=== PATIENT | female | born 1985 | race Caucasian/White ===

== ENCOUNTER 2019-06-30 14:30 | Outpatient (CLI) | payer MEDICAID | END 2019-06-30 15:09 | disposition home or self-care (01) | LOC: D.LDO 14:30 | PROVIDERS: ATTEND Student in an Organized Health Care Education/Training Program | DX: O36.5990 Maternal care for other known or suspected poor fetal growth, unspecified trimester, not applicable or unspecified (principal) ==

== ENCOUNTER → 2019-07-13 14:15 | Outpatient (CLI) | payer MEDICAID ==
[2019-07-13 15:40] LABS: BASOPHILS 0.2 % (0-2); EOSINOPHILS 1.5 % (0-7); HEMATOCRIT 23.6 % (36.0-48.0); IMMATURE GRANULOCYTES 0.6 % (0-5); LYMPHOCYTES 22.7 % (15-50); MCH 23.2 pg (26.0-34.0); MCHC 29.7 g/dL (31.0-37.0); MCV 78.1 fL (80.0-100.0); MEAN PLATELET VOLUME 8.8 fL (7.4-10.4); MONOCYTES 4.7 % (2-11); NEUTROPHILS 70.3 % (40-80); PLATELET COUNT 383 10x3/uL (130-400); RBC 3.02 10x6/uL (4.00-5.40); RDW 14.4 % (11.5-14.5); WBC 8.3 10x3/uL (4.8-10.8)
[2019-07-13 15:50] LABS: CALC OSMOLALITY 270 mosm/kg (275-300); CALCIUM 7.7 mg/dL (8.5-10.1); CARBON DIOXIDE 23.4 mmol/L (21.0-32.0); CHLORIDE - SERUM 105 mmol/L (98-107); CREATININE - SERUM 0.5 mg/dL (0.6-1.3); GLUCOSE 78 mg/dL (74-106); POTASSIUM - SERUM 3.5 mmol/L (3.5-5.1); SODIUM 137 mmol/L (136-145); UREA NITROGEN 7 mg/dL (7-18); eGFR NON AFRICAN AMERICAN > 90 mL/min (90-120)
[2019-07-13 15:56] LABS: ALBUMIN 1.8 g/dL (3.4-5.0); ALKALINE PHOSPHATASE 205 U/L (30-120); ALT (SGPT) 18 U/L (10-68); BILIRUBIN - INDIRECT 0.19 mg/dL (0.00-1.00); BILIRUBIN - TOTAL 0.29 mg/dL (0.2-1.3); PROTEIN - SERUM 5.9 g/dL (6.4-8.2); URIC ACID 5.1 mg/dL (2.6-7.2)
[2019-07-13 16:00] LABS: BILIRUBIN NEGATIVE (NEGATIVE); GLUCOSE NEGATIVE (NEGATIVE); KETONE NEGATIVE (NEGATIVE); NITRITE NEGATIVE (NEGATIVE); UROBILINOGEN NORMAL (NORMAL)
[2019-07-13 16:12] LABS: EPITHELIAL CELLS 0-5 /hpf (0-5); RED CELLS - URINE 0-5 /hpf (0-5); WHITE CELLS - URINE 25-50 /hpf (NEGATIVE)
[2019-07-13 16:13] LABS: BACTERIA MODERATE /hpf (NEGATIVE)
== END | disposition home or self-care (01) ==
LOC: D.LDO 14:15
PROVIDERS: ATTEND Student in an Organized Health Care Education/Training Program
DX: O16.9 Unspecified maternal hypertension, unspecified trimester (principal)

== ENCOUNTER → 2019-07-17 08:44 | Outpatient (CLI) | payer MEDICAID ==
[~2019-07-17 08:44] MED LIST: FERROUS SULFAT325 MG PO; PRENAVITE1 TAB PO
[2019-07-17 11:29] VITALS: BP 112/74
== END | disposition home or self-care (01) ==
LOC: D.LDO 08:44
PROVIDERS: ATTEND Student in an Organized Health Care Education/Training Program
DX: O26.899 Other specified pregnancy related conditions, unspecified trimester (principal)

== ENCOUNTER 2019-07-29 05:21 | Inpatient (IN) | payer MEDICAID ==
[~2019-07-29] VITALS: Ht 154.9 cm; Wt 66.7 kg
[2019-07-29] VITALS (9 sets, daily range): BP systolic 112–135; BP diastolic 58–95; Ht 154.9 cm; Wt 66.7 kg
--- NOTE | ~2019-07-29 | OP ---
PATIENT NAME: ELIZABETH SON MEDICAL RECORD: [id number] :85 LOCATION:[id number] ADMISSION DATE:07/29/19 SURGEON: AYE CABAN DO DATE OF OPERATION: 07/29/2019 PREOPERATIVE DIAGNOSES: Scheduled repeat , multiparity, desire for permanent sterilization. POSTOPERATIVE DIAGNOSES: Scheduled repeat , multiparity, desire for permanent sterilization. PRIMARY SURGEON: Aye Caban DO ANESTHESIA: Spinal. PROCEDURE: Repeat low transverse section via Pfannenstiel incision, bilateral tubal ligation. FINDINGS: Male , weight 6 pounds 5 ounces, delivered at 10:28 a.m., Apgars 9 and 9. Normal uterus, bilateral fallopian tubes, bilateral ovaries. SPECIMENS: Placenta and cord, portion of bilateral fallopian tubes. ESTIMATED BLOOD LOSS: 800 cc. IV FLUIDS: 2500 cc. URINE OUTPUT: 300 cc clear urine. COMPLICATIONS: None. CONDITION: Stable. PROCEDURE IN DETAIL: The risks, benefits, alternatives, and indications of the procedure were discussed with the patient. She voiced understanding of the procedure and signed the consent. She understood that bilateral tubal ligation is a permanent procedure and expressed desire for permanent sterility. She was given spinal anesthesia and she was placed in the dorsal supine position with a leftward tilt. She was prepped and draped in the normal sterile fashion. A Pfannenstiel skin incision was made with a scalpel and carried down to the underlying layer of the fascia with the Bovie. The fascia was incised in the midline and extended laterally. The inferior aspect of the fascial incision was grasped with Dinorah clamps and the rectus muscle was dissected off sharply. Attention was then turned to the superior aspect of the fascial incision and the rectus muscle was dissected off in a similar fashion. The rectus muscle was grasped with 2 Allises, down to the level of the peritoneum with the scalpel. The peritoneum was identified and noted to be free of adherent bowel and entered bluntly. The peritoneum was further with gentle traction. The bladder blade was inserted. There was a uterine window noted and the uterus was incised in a lower uterine segment in transverse fashion with a scalpel. The incision was extended with cephalad caudad traction. The 's head was brought to the incision. Nuchal cord times 1 was noted and was reduced over the head prior to delivery of the body. The infant delivered without difficulty. Mouth and nose were suctioned. Cord was clamped and cut and the infant was handed off to waiting pediatricians. The placenta was manually OPERATIVE REPORT [id number] ELIZABETH SON removed. The uterus was exteriorized and a moist lap was used to assure complete removal of placental membranes. The hysterotomy was closed with 0 Vicryl in a running locked fashion with good hemostasis noted. The uterus, tubes and ovaries were noted to be normal. The right fallopian tube was grasped with a Malvin and was ligated via modified Leaven[place] technique. The left tube was ligated in similar fashion and both portions of tube were sent to pathology. The posterior cul-de-sac was irrigated with warm sterile water and the uterus, tubes and ovaries were returned back to the abdominal cavity. A moist laparotomy sponge was used to assure complete removal of blood clots and fluid from the abdominal cavity. The hysterotomy was reinspected and noted to be hemostatic. Both tubal ligation sites were reinspected and also noted to be hemostatic. The rectus muscle was closed with 2-0 Monocryl in a running fashion with good hemostasis. The fascial incision was closed with 0 Vicryl in a running fashion with good hemostasis. The skin was closed in a subcuticular fashion with 3-0 Monocryl and Steri-Strips covering. All needle, lap, sponge, and instrument counts were correct times 2. The patient tolerated the procedure well and she was taken to recovery room in stable condition. TRANSINT:[id number] Voice Confirmation ID: [id number] DOCUMENT ID: [id number] AYE CABAN DO CC: [id number] DICTATION DATE: 07/29/191126 RESAW FEEDER: 07/29/19 1229 ADM IN [facility] [address] [place] [address]
[2019-07-29 06:09] LABS: HEMATOCRIT 32.8 % (36.0-48.0); MCHC 30.5 g/dL (31.0-37.0); MEAN PLATELET VOLUME 9.5 fL (7.4-10.4); RDW 19.3 % (11.5-14.5); WBC 9.9 10x3/uL (4.8-10.8)
[2019-07-29 06:22] LABS: UDS - AMPHET NEGATIVE QUAL (NEGATIVE); UDS - BARB NEGATIVE QUAL (NEGATIVE); UDS - BENZO NEGATIVE QUAL (NEGATIVE); UDS - COCAINE NEGATIVE QUAL (NEGATIVE); UDS - OPIATE NEGATIVE QUAL (NEGATIVE); UDS - PCP NEGATIVE QUAL (NEGATIVE); UDS - THC NEGATIVE QUAL (NEGATIVE)
[2019-07-29 06:33] LABS: NITRITE NEGATIVE (NEGATIVE)
[2019-07-29 06:34] LABS: BILIRUBIN NEGATIVE (NEGATIVE); GLUCOSE NEGATIVE (NEGATIVE); KETONE NEGATIVE (NEGATIVE); UROBILINOGEN NORMAL (NORMAL)
[2019-07-29 06:36] LABS: RED CELLS - URINE NONE SEEN /hpf (0-5); WHITE CELLS - URINE 0-5 /hpf (NEGATIVE)
[2019-07-29 06:37] LABS: BACTERIA FEW /hpf (NEGATIVE); EPITHELIAL CELLS 0-5 /hpf (0-5)
--- NOTE | 2019-07-29 11:55 | NUR ---
RECEIVED PT TO LD FROM [facility] POST C/S ON BED TO ROOM 1274. PT HAS LARGE WHITE DRESSING TO LOW TRANSVERSE INCISION, C/D/I. ABDOMEN PALPATES SOFT, FUNDUS FIRM, U/1, MODERATE RUBRA LOCHIA, NO CLOTS EXPELLED. FUNDUS IS DEVIATED TO THE RIGHT, SALAZAR CATH DRAINING CLEAR YELLOW URINE. PT C/O PAIN TO INCISIONAL AREA, C/O CRAMPING, RATING PAIN 6/10, WILL ADM PAIN MEDICATION, SEE EMAR FOR ALL MEDS ADM BY THIS RN. PT IS SERVED CLEAR LIQUID DIET BY DIETARY. PT DENIES N/V, SOB OR DIFFICULTY BREATHING. PT DENIES ALL OTHER NEEDS. SR UP X 2, CALL LIGHT AND PHONE WITHIN REACH.
--- NOTE | 2019-07-29 12:18 | NUR ---
DR MERCADO IN ROOM TALKING WITH PT AND .
--- NOTE | 2019-07-29 12:27 | NUR ---
SCANT LOCHIA NOTED ON PAD. FUNDUS UU/FIRM.
--- NOTE | 2019-07-29 13:00 | NUR ---
CO CONT PAIN IN ABD. STATES WOULD LIKE OTHER 2MG OF MORPHINE. RATES PAIN A 7-8 ON SCALE OF 0-10. MED GIVEN.
--- NOTE | 2019-07-29 13:04 | NUR ---
MORPHINE 2MG IV SLOWLY GIVEN. FUNDUA UU/FIRM. SCANT LOCHIA NOTED ON PAD. VISITOR AT BEDSIDE.
--- NOTE | 2019-07-29 13:05 | NUR ---
report to get portillo rn
--- NOTE | 2019-07-29 14:05 | NUR ---
FUNDUS FIRM AT U/1 WITH LIGHT BLEEDING NOTED, UNDERPAD CHANGED. PT RATES PAIN AT 5/10 AND UNDERSTANDS PAIN MED CAN BE REPEATED AT 1630. ICE PACK PROVIDED AND PT UNDERSTANDS IF SHE DOES NOT LIKE IT SHE CAN REMOVE FROM INCISION. CALL LIGHT IN REACH.
--- NOTE | 2019-07-29 15:50 | NUR ---
IN TO SEE PT. FUNDUS FIRM 1 BELOW THE UMBILICUS. BLEEDING RUBRA, SMALL. TESS PADS AND TOWELS CHANGED. PT REQUESTING PAIN MED-INFORMED PATIENT SHE CAN HAVE PAIN MED IN 30 MINUTES. STATES UNDERSTANDING.
--- NOTE | 2019-07-29 16:30 | NUR ---
PT CALLS OUT REQUESTING PAIN MED. RATES PAIN AT 810, MEDS GIVEN SCANNED TO EMAR. LIGHTS OUT PER REQUEST.
--- NOTE | 2019-07-29 17:30 | NUR ---
RATES PAIN AT 4/10, TORDAL GIVEN ORDERED AND SCANNED TO EMAR. IV PUMP CLEARED, SALAZAR CATH EMPTIED WITH TOTAL OUTPUT OF 1200ML CLEAR URINE. UNDERPAD CHANGED AND PT TURNED TO RIGHT SIDE. SIDE RAILS UP X 2 WITH CALL LIGHT IN REACH. DENIES ANY OTHER NEEDS AT THIS TIME.
--- NOTE | 2019-07-29 18:45 | NUR ---
PT SLEEPING AT THIS TIME, SHIFT REPORT RECEIVED FROM FRANK BERG TO ASSUME PT CARE.
--- NOTE | 2019-07-29 19:46 | NUR ---
SHIFT ASSESSMENT COMPLETED, SEE FLOWSHEET
--- NOTE | 2019-07-29 19:58 | NUR ---
DR CABAN CALLED AND REPORTED PT REQUEST TO HAVE HER SALAZAR OUT AND EAT A REGULAR DIET. NEW ORDERS NOTED TO D/C SALAZAR CATHETER, REGULAR DIET, MOTRIN 600MG PO Q6HRS, PERCOCET 5MG PO Q4HRS PRN MILD/MODERATE PAIN OR PERCOCET 10MG PO Q4HRS PRN SEVERE PAIN, ENCOURAGE AMBULATION.
--- NOTE | 2019-07-29 20:30 | NUR ---
SALAZAR CATHETER REMOVED WITHOUT INCIDENT. SANDWICH TRAY AND PUDDING PROVIDED PER PT REQUEST. PT ENCOURAGED TO CALL WHEN SHE IS READY TO GET UP. BED LOCKED IN LOW POSITION, SIDE RAILS UPX2, CALL ROME AND TRAY TABLE IN REACH. WILL CONTINUE TO MONITOR.
--- NOTE | 2019-07-29 20:50 | NUR ---
CALLED TO ROOM BY PATIENT, ASSISTED UP TO CHANGE INTO HER OWN CLOTHES. IV D/C'D, SCD BOOTS REMOVED AND PADS AND PANTIES PROVIDED. PT BACK TO BED WITHOUT INCIDENT. SIGNIFICANT OTHER REMAINS AT BEDSIDE FOR SUPPORT. WILL CONTINUE TO MONITOR
--- NOTE | 2019-07-29 22:20 | NUR ---
PATIENT SLEEPING WITH EYES CLOSED, AUDIBLE SNORING NOTED. BED REMAINS LOCKED IN LOW POSITION, SIDE RAILS UPX1, TRAY TABLE AND CALL ROME IN REACH. SINGIFICANT OTHER REMAINS IN ROOM FOR SUPPORT. WILL CONTINUE TO MONITOR.
--- NOTE | 2019-07-29 23:45 | NUR ---
PATIENT AMBULATED TO BATHROOM WITH ASSISTANCE FROM SIGNIFICANT OTHER. STATES THAT SHE VOIDED WITHOUT INCIDENT BUT THAT SHE IS HURTING. ENCOURAGED PT TO CALL WITH ANY FURTHER NEEDS.
--- NOTE | 2019-07-30 00:08 | NUR ---
PAIN MEDICATION ADMINISTERED PER MD ORDERS AND PT REQUEST, SEE EMAR.
[2019-07-30 00:54] VITALS: BP 112/58
--- NOTE | 2019-07-30 00:56 | NUR ---
PATIENT STATES THAT THE PAIN MEDICINE WORKED UNTIL SHE JUST GOT UP TO THE BATHROOM AGAIN. PT VOIDED WITHOUT DIFFICULTY AND STATES THAT HER BLEEDING IS LIGHT WITH NO CLOTS. ICE PACK PLACED TO INCISION, PT POSITIONED FOR COMFORT, WILL CONTINUE TO MONITOR.
--- NOTE | 2019-07-30 01:45 | NUR ---
PT SLEEPING WITH EVEN RESPIRATIONS. NO DISTRESS NOTED, WILL CONTINUE TO MONITOR
--- NOTE | 2019-07-30 03:55 | NUR ---
percocet 10/325mg administered per pt request and md orders. pt assisted up to bathroom at this time, pt states that she is good, encouraged pt to use call castillo as needed. pts significant other remains at bedside for support. will continue to monitor
--- NOTE | 2019-07-30 05:45 | NUR ---
ADMINISTERED IBUPROFEN 600MG PER MD ORDERS, CRACKERS, PEANUT BUTTER AND JUICE PROVIDED. PT DENIES OTHER NEEDS. WILL CONTINUE TO MONITOR.
[2019-07-30 05:47] VITALS: BP 103/59
[2019-07-30 06:08] LABS: RAPID PLASMA REAGIN Non Reactive (Non Reactive)
--- NOTE | 2019-07-30 06:45 | NUR ---
PT RESTING QUIETLY WITH EYES CLOSED, RESPIRATIONS EVEN AND NON LABORED, NO DISTRESS NOTED. BED REMAINS LOCKED IN LOW POSITION. SIDERAILS UPX2, CALL ROME AND TRAY TABLE IN REACH. SIGNIFICANT OTHER REMAINS AT BEDSIDE FOR SUPPORT. WILL CONTINUE TO MONITOR
--- NOTE | 2019-07-30 07:15 | NUR ---
PT RESTING WITH OUT SIGNS OF DISTRESS, LEFT UNDISTURBED. SIDE RAILS NOTED TO BE UP X 2 WITH CALL LIGHT IN REACH. SIG OTHER ON COUCH.
[2019-07-30 07:22] LABS: BASOPHILS 0.2 % (0-2); EOSINOPHILS 0.7 % (0-7); HEMATOCRIT 28.7 % (36.0-48.0); HEMOGLOBIN 8.7 g/dL (12-16); IMMATURE GRANULOCYTES 0.5 % (0-5); LYMPHOCYTES 12.9 % (15-50); MCH 24.8 pg (26.0-34.0); MCHC 30.3 g/dL (31.0-37.0); MCV 81.8 fL (80.0-100.0); MEAN PLATELET VOLUME 9.1 fL (7.4-10.4); NEUTROPHILS 80.7 % (40-80); PLATELET COUNT 492 10x3/uL (130-400); RBC 3.51 10x6/uL (4.00-5.40); RDW 19.5 % (11.5-14.5)
[2019-07-30 07:32] LABS: WBC 13.1 10x3/uL (4.8-10.8)
--- NOTE | 2019-07-30 08:00 | NUR ---
PAIN MED GIVEN REQUESTED, PT RATES PAIN AT 8/10. NO OTHER NEEDS AT THIS TIME.
--- NOTE | 2019-07-30 08:30 | NUR ---
PAIN REASSEMENT WITH PT RATING PAIN AT 14/10 AT THIS TIME. AM ASSESSMENT CHARTED ON FLOWSHEET. FUNDUS FIRM AT U/U WITH SCANT BLEEDING NOTED TO TESS PAD. SALINE LOCK REMOVED FROM LEFT FOREARM WITH CATH INTACT. SALINE LOCK TO RIGHT WRIST PATENT AND FLUSHED EASILY WITH 5ML NS. BIKINI INCISION WITH LARGE WHITE BANDAGE IN PLACE, BANDAGE IS CLEAN AND DRY. PT QUESTIONS IF SHE IS ABLE TO REMOVE OR DOES DR CABAN NEED TO BE THE ONE TO REMOVE. REASSURED HER THAT SHE COULD REMOVE BANDAGE WHEN SHE TOOK A SHOWER, SHE STATES SHE TOOK HER SHOWER EARLIER THIS AM, SHE IS ABLE TO REMOVE BANDAGE HERSELF WITH THIS RN AT BEDSIDE, INCISION CLEAN AND DRY WITH STERI STRIPS IN PLACE, PT GIVEN TESS PAD TO COVER INCISION. DENIES ANY NEEDS AT THIS TIME. CALL LIGHT IN REACH.
--- NOTE | 2019-07-30 09:30 | NUR ---
PT GIVEN BREAST PUMP WITH INSTRUCTIONS OF USE. QUESTIONS ASKED AND ANSWERED.
--- NOTE | 2019-07-30 09:45 | NUR ---
CALLED TO ROOM, PT QUESTIONS IF DR CABAN WOULD BE IN TO SEE HER TODAY AND REASSURED THAT SHE WOULD. QUESTIONED PT IF SHE HAD PLANNED TO BREAST FEED AND IF SO WOULD SHE LIKE TO START PUMPING NOW, NURSERY NURSE NOTIFIED FOR BREAST PUMP AND WILL COME TALK TO PT ABOUT USE AND MILK STORAGE.
--- NOTE | 2019-07-30 11:53 | NUR ---
PAIN MED GIVEN FOR PAIN THAT SHE RATES AT 7/10. PT UP TO BATHROOM PER SELF AND DENIES ANY NEEDS AT THIS TIME. CALL LIGHT REMAINS IN REACH.
--- NOTE | 2019-07-30 12:11 | NUR ---
ROUNDS MADE BY DR CABAN.
--- NOTE | 2019-07-30 15:50 | NUR ---
PT CALLS OUT REQUESTING PAIN MED. THIS RN TO BEDSIDE WITH MED GIVEN SCANNED TO EMAR, SHE RATES PAIN AT 8/10 AT THIS TIME. NO OTHER NEEDS, SIDE RAILS UP X 2 WITH CALL LIGHT IN REACH.
--- NOTE | 2019-07-30 16:45 | NUR ---
PT AMB IN [place] WITH SIG OTHER, SHE RATES HER PAIN AT 2/10.
--- NOTE | 2019-07-30 17:08 | NUR ---
PT WALKS BACK TO ROOM, STATES SHE WAS ABLE TO WALK TO FRONT DOOR AND BACK. CONTINUE TO RATE HER PAIN AT 2/10.
[2019-07-30 18:56] VITALS: BP 127/76
--- NOTE | 2019-07-30 18:56 | NUR ---
SHIFT ASSESSMENT COMPLETED, SEE FLOWSHEET. BOTH IV SITES DISCONTINUED PER MD ORDERS AND PT REQUEST. PRESSURE AND BANDAIDS APPLIED. PT DENIES NEEDS AT THIS TIME, SIGNIFICANT OTHER REMAINS AT BEDSIDE FOR SUPPORT. WILL CONTINUE TO MONITOR.
--- NOTE | 2019-07-30 20:03 | NUR ---
MEDICATION ADMINISTERED PER PT REQUEST, SEE EMAR
--- NOTE | 2019-07-30 20:38 | NUR ---
PT AMBULATING IN H[facility]WAY WITH SIGNIFICANT OTHER. NO DISTRESS NOTED.
--- NOTE | 2019-07-30 21:00 | NUR ---
PT WALKING IN [place] AGAIN.
--- NOTE | 2019-07-30 22:00 | NUR ---
PT SITTING UP IN BED, DISCUSSING HOW SHE CANT WAIT TO LEAVE TOMORROW AND GO SEE HER BABY AND THEN BRING HIM HOME WELL. DENIES NEEDS AT THIS TIME, ENCOURAGED TO CALL WITH ANY NEEDS. WILL CONTINUE TO MONITOR
--- NOTE | 2019-07-31 00:51 | NUR ---
PT RESTING QUIETLY WITH EYES CLOSED, EASILY AROUSED TO VERBAL. MEDICATION ADMINISTERED PER MD ORDERS, SEE EMAR. SANDWICH TRAY,PUDDING AND ICE WATER PROVIDED. BED REMAINS LOCKED IN LOW POSITION, SIDE RAILS UPX2, CALL ROME AND TRAY TABLE IN REACH, SIGNIFICANT OTHER REMAINS AT BEDSIDE FOR SUPPORT
[2019-07-31 00:52] VITALS: BP 120/80
--- NOTE | 2019-07-31 03:03 | NUR ---
PT SLEEPING, RESPIRATIONS EVEN AND NON LABORED, WILL CONTINUE TO MONITOR.
--- NOTE | 2019-07-31 04:59 | NUR ---
PT RESTING QUIETLY WITH EYES CLOSED, PT AWOKE UPON THIS RN ENTERING THE ROOM AND REQUESTED PAIN MEDICATION. ADMINISTERED PAIN MEDICATION PER MD ORDERS AND PT REQUEST, SEE EMAR.
--- NOTE | 2019-07-31 05:30 | NUR ---
PT AMBULATING IN HALLWAY, JUICE PROVIDED PER PT REQUEST. NO FURTHER NEEDS IDENTIFIED. WILL CONTINUE TO MONITOR
[2019-07-31 07:08] VITALS: BP 111/70
--- NOTE | 2019-07-31 07:08 | NUR ---
SHIFT ASSESSMENT AND EDUCATION COMPLETED PER FLOWSHEETS. PAIN REASSESSMENT COMPLETED FROM MOTRIN, NOW 3/10 ABD CRAMPING. FUNDUS FIRM, MIDLINE AND U2 WITH SCANT RUBRA LOCHIA, NO CLOTS NOTED. DISCUSSED UPCOMING MEDS WITH PT, STATES THAT SHE DOESN'T WANT IRON TAB UNTIL SHE HAS BM D/T TAKING FE TABS IN PAST AND IT CAUSING CONSTIPATION. DISCUSSED TAKING WITH STOOL SOFTENERS, PT STATES THAT SHE STILL DOESN'T WANT FERROUS SULFATE UNTIL SHE HAS BM. VSS. DENIES NEEDS AT THIS TIME. REQUESTS TO D/C SYMONE TO GO BE WITH IN NICU. SIGNIFICANT OTHER RESTING ON COUCH AT THIS TIME. BED IN LOW POSITION WITH SRUP X2. CALL LIGHT AND PHONE WITHIN REACH. WILL CONTINUE TO MONITOR AND ASSIST PRN.
--- NOTE | 2019-07-31 09:09 | NUR ---
PT CALLS ON LIGHT. REQUESTS AND RECEIVES PERCOCET 14530 PO ORDERED. PT ALSO GIVEN VITAMIN C ORDERED. PT REFUSES NICOTINE PATCH AND IRON.
--- NOTE | 2019-07-31 09:27 | NUR ---
AMBULATORY IN [place] WITH SIGNIFICANT OTHER. STEADY GAIT NOTED. DENIES NEEDS.
--- NOTE | 2019-07-31 09:51 | NUR ---
PAIN REASSESSMENT COMPLETED, 3-07/23 FOLLOWING PERCOCET. DENIES ADDITIONAL NEEDS. CONVERSING WITH SIGNIFICANT OTHER. BREAST PUMP RETURNED TO N PER PT REQUEST.
--- NOTE | 2019-07-31 12:25 | NUR ---
C/O ABD CRAMPING 4-08/22, MOTRIN GIVEN PER ORDER AND PT REQUEST. RN REMAINS IN ROOM TO PROVIDE D/C TEACHINGS TO PT AND SIGNIFICANT OTHER.
--- NOTE | 2019-07-31 12:32 | NUR ---
PRESCRIPTION PROVIDED TO PT AND PT STATES THAT THEY WILL DROP IT OFF ON THE WAY HOME TO HAVE FILLED. D/C INSTRUCTIONS, PFW HANDOUT, AND SAVE YOUR LIFE HANDOUTS REVIEWED WITH PT AND SIGNIFICANT OTHER, BOTH VERBALIZE UNDERSTANDING AND DENY QUESTIONS. BREAST CARE, BREAST FEEDING DIET, AND FREQUENCY OF FEEDINGS/PUMPING ALSO DISCUSSED AND MASTITIS REVIEWED WITH PT, VERBALIZES UNDERSTANDING. REINFORCED TEACHING ON INCISIONAL CARE, VERBALIZES UNDERSTANDING. PT VERBALIZES S/S OF INFECTION AND UNDERSTANDING TO CALL CLINIC SATURDAY MORNING FOR F/U APPT. PT REQUESTS PERCOCET PRIOR TO LEAVING UNIT, WILL PROVIDE.
--- NOTE | 2019-07-31 12:38 | NUR ---
SIGNIFICANT OTHER OUT TO GET CAR. PERCOCET PROVIDED PER PT REQUEST AND ORDER. BELONGINGS GATHERED AND OUT WITH PT.
--- NOTE | 2019-07-31 12:46 | NUR ---
OFF UNIT IN W/C TO AWAITING CAR PER THIS RN IN STABLE CONDITION. COPY OF DISCHARGE INSTRUCTIONS IN HAND.
== END 2019-07-31 12:46 | disposition home or self-care (01) | DRG 785 ==
LOC: D.LD 05:21 → D.SDCHOLD 08:30 → D.LD 07-31 12:46
PROVIDERS: ADMIT Student in an Organized Health Care Education/Training Program; ATTEND Student in an Organized Health Care Education/Training Program
PROC: 10D00Z1 Extraction of Products of Conception, Low, Open Approach (ICD-10-PCS; principal; 2019-07-29 08:30)
PROC: 0UB70ZZ Excision of Bilateral Fallopian Tubes, Open Approach (ICD-10-PCS; 2019-07-29 08:30)
DX: O34.219 Maternal care for unspecified type scar from previous cesarean delivery (principal); Z3A.39 39 weeks gestation of pregnancy; Z37.0 Single live birth; O69.81X0 Labor and delivery complicated by cord around neck, without compression, not applicable or unspecified; Z30.2 Encounter for sterilization